=== PATIENT | female | born 1995 | race Caucasian/White ===

== ENCOUNTER 2020-05-15 21:49 | Emergency (ER) | payer OTHER ==
[~2020-05-15] VITALS: Ht 167.6 cm; Wt 55.8 kg
[2020-05-15 21:54] VITALS: Ht 167.6 cm; Wt 55.8 kg
[2020-05-16 01:33] VITALS: BP 147/89
== END 2020-05-15 23:50 | disposition home or self-care (01) ==
LOC: ED 21:49
DX: T76.21XA Adult sexual abuse, suspected, initial encounter (principal)